=== PATIENT | female | born 1945 | race Caucasian/White ===

== ENCOUNTER 2021-07-01 20:25 | Emergency (ER) | payer MEDICARE, OTHER, SELFPAY ==
[2021-07-01 20:40] VITALS: BP 150/64; PULSE 90; RESP 20; TEMP 36.3; O2SAT 96
--- NOTE | 2021-07-01 21:21 | ED.FEMALEGU ---
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 She states the bleeding started 1 week ago however she has some minor episodes approximately 3 months ago. She had an episode of menstrual cramping for about a half an hour today. She has had no other bleeding or unusual bruising and denies fever, nausea, vomiting, diarrhea, cough or cold symptoms, shortness breath, chest pain, lightheadedness. She states she feels fatigued and weak. Patient states that she has had 2 procedures wherein attempts to remove the vaginal mash used in her bladder suspension were unsuccessfully. MD elicited complaint: vaginal bleeding Pertinent past history: recurrent UTIs and hysterectomy ( Partial) Onset (ago): day(s) (5) Location of symptoms: vaginal Severity: moderate Female Urogenital Radiation: Non-Radiating Quality of pain: cramping Consistency: intermittent and now resolved Vaginal discharge: none Vaginal bleeding: dark red and clots Exacerbating factors: none Relieving factors: none Associated symptoms: weakness Sexual activity: No Related Data Home Medications Medication Instructions Recorded Confirmed allopurinol 300 mg PO DAILY 07/01/21 07/01/21 apixaban [Eliquis] 5 mg PO BID 07/01/21 07/01/21 atorvastatin 40 mg PO HS 07/01/21 07/01/21 furosemide 40 mg PO DAILY 07/01/21 07/01/21 levothyroxine [Synthroid] 100 mcg PO DAILY 07/01/21 07/01/21 methenamine hippurate 1 g PO DAILY 07/01/21 07/01/21 sertraline 50 mg PO DAILY 07/01/21 07/01/21 sertraline 100 mg PO DAILY 07/01/21 07/01/21 tolterodine [Detrol LA] 4 mg PO DAILY 07/01/21 07/01/21 Allergies Allergy/AdvReac Type Severity Reaction Status Date / Time clindamycin Allergy Unknown RASH Verified 05/12/18 18:11 Sulfa (Sulfonamide Allergy Unknown RASH Verified 05/12/18 18:11 Antibiotics) Review of Systems Review of Systems: All systems reviewed & are unremarkable except as noted in HPI and below Constitutional: Constitutional: Denies chills and Denies fatigue Eyes: Eyes: Denies change in vision and Denies photophobia ENT: Denies nasal congestion and Denies sore throat Cardiovascular: Cardiovascular: Denies chest pain and Denies radiating jaw, neck or arm pain Respiratory: Respiratory: Denies cough and Denies dyspnea Gastrointestinal: Gastrointestinal: Reports abdominal pain, Denies diarrhea, Denies nausea and Denies vomiting Genitourinary: Genitourinary: Reports abnormal vaginal bleeding, Denies hematuria, Denies nocturia and Denies dysuria Musculoskeletal: Musculoskeletal: Reports back pain, Denies arthralgias and Denies joint swelling Integumentary/Breasts: Skin/Breast: Denies pruritus, Denies erythema and Denies rash Neurologic: Denies vertigo, Denies dizziness and Denies syncope Hematologic/Lymphatic: Hematologic/Lymphatic: Reports easy bleeding and Reports easy bruising Comments: Takes apixaban for DVT. Allergic/Immunologic: Allergic/Immunologic: Denies lip swelling and Denies tongue swelling PMFSH Past Medical History Medical History DVT (deep venous thrombosis) Dyslipidemia Hypothyroidism Melanoma Recurrent UTI Surgical History Surgical History Complication of implanted vaginal mesh Hiatal hernia surgical repair History of bladder suspension procedure History of cataract surgery History of partial hysterectomy Hx of cholecystectomy S/P total knee arthroplasty bilateral Social History Social History (Updated
[2021-07-01 22:15] LABS: Add Urine Microscopic? YES; Bilirubin Urine Negative (Negative); Blood Urine 3+ (Negative); Color Urine Light Yellow (Yellow); Glucose Urine UA Negative (Negative); Ketones Urine Negative (Negative); Leukocyte Esterase Ur Trace (Negative); Nitrate Urine Positive (Negative); Protein Urine Trace (Negative); Specific Grav Ur 1.025 (1.010-1.020); Urobilinogen Urine 0.2 mg/dL (0.2-1.0); pH Urine 5.5 (5.0-8.0)
[2021-07-01 22:16] LABS: Basophils Absolute Auto 0.03 K/mm3 (0.00-0.10); Basophils Percent Auto 0.3 % (0.0-1.0); Eosinophils Absolute Auto 0.05 K/mm3 (0.02-0.50); Eosinophils Percent Auto 0.5 % (1.0-6.0); Hematocrit 39.2 % (35.0-42.0); Hemoglobin 14.2 g/dL (11.7-13.8); Immature Granulocyte Absolute 0.04 K/mm3 (0.00-0.00); Immature Granulocyte Percent A 0.4 % (0.0-0.0); Lymphocytes Absolute Auto 1.59 K/mm3 (1.10-4.50); Lymphocytes Percent Auto 17.5 % (18.0-42.0); Mean Corpuscular HGB Conc 36.2 g/dL (32.0-36.0); Mean Corpuscular Hemoglobin 35.6 pg (27.0-31.0); Mean Corpuscular Volume 98.2 fL (78.0-102.0); Mean Platelet Volume 10.5 fl (9.2-11.8); Monocytes Absolute Auto 0.62 K/mm3 (0.10-0.90); Monocytes Percent Auto 6.8 % (2.0-11.0); Neutrophils Absolute Auto 6.8 K/mm3 (1.7-7.2); Neutrophils Percent Auto 74.5 % (50.0-70.0); Platelet Count Result 209 K/mm3 (150-420); Red Blood Count 3.99 M/mm3 (4.20-5.40); Red Cell Distribution Width 15.6 % (11.6-14.4); White Blood Count 9.1 K/mm3 (4.8-10.8)
[2021-07-01 22:24] LABS: Appearance Urine Cloudy (Clear)
[2021-07-01 22:25] LABS: Bacteria Urine 4+ /hpf; RBC Urine >75 /hpf (0-2); Squamous Epithelial Cell Urine Few /hpf (Few); WBC Clumps Urine Present /hpf
[2021-07-01 22:28] LABS: Partial Thromboplastin Time 24.2 SEC (23.90-30.70); Prothrombin Time 11.1 Seconds (9.50-12.10)
[2021-07-01 22:33] LABS: Alanine Aminotransferase 24 U/L (14-59); Albumin Level 3.7 g/dL (3.4-5.0); Alkaline Phosphatase 116 U/L (46-116); Anion Gap 10 mmol/L (8-16); Aspartate Amino Transferase 19 U/L (15-37); Bilirubin,Total 0.3 mg/dL (0.00-1.00); Blood Urea Nitrogen 19 mg/dL (7-18); Carbon Dioxide 30 mmol/L (21-32); Chloride 105 mmol/L (98-108); Estimated CRCL calculation 43 ml/min; Estimated Glomerular Filt Rate 52; Glucose 113 mg/dL (70-99); Osmolality Calculated 303 mOsm/kg (285-295); Sodium 145 mmol/L (136-145); Total Protein 7.9 g/dL (6.4-8.2)
[2021-07-01 22:37] VITALS: BP 144/72; PULSE 85; RESP 20; O2SAT 96
[2021-07-01] MEDS: POTASSIUM CHLORIDE 20 MEQ TABLET 40 MEQ PO (22:45)
[2021-07-01 22:53] VITALS: BP 145/84; PULSE 87; RESP 18; TEMP 36.2; O2SAT 97
== END 2021-07-01 22:54 | disposition home or self-care (01) ==
PROVIDERS: Emergency Provider Emergency Medicine
DX: N93.9 Abnormal uterine and vaginal bleeding, unspecified (principal); N39.0 Urinary tract infection, site not specified; Z86.718 Personal history of other venous thrombosis and embolism; E78.5 Hyperlipidemia, unspecified; E03.9 Hypothyroidism, unspecified; Z79.01 Long term (current) use of anticoagulants
CPT/HCPCS: 36415; 80053; 81001; 85025; 85610; 85730; 99283; A9270